=== PATIENT | male | born 1955 | race African-American/Black ===

== ENCOUNTER 2018-01-24 13:03 | Inpatient (IN) | payer OTHER ==
[2018-01-24 18:17] VITALS: BMI 21.1
--- NOTE | 2018-01-24 18:36 | HP ---
CIWA Score - CIWA Score Nausea/Vomitin Muscle Tremors: 3 Anxiety: 3 Agitation: 3 Paroxysmal Sweats: 2 Orientation: 0-Oriented Tacttile Disturbances: 2-Mild Itch/Numbness/Burn Auditory Disturbances: 2-Mild Harshness/Frighten Visual Disturbances: 0-None Headache: 2-Mild CIWA-Ar Total Score: 20 Admission ROS [facility] - HPI Chief Complaint: I NEED HELP TO STOP DRINKING ALCOHOL AND COCAINE Allergies/Adverse Reactions: Allergies Allergy/AdvReac Type Severity Reaction Status Date / Time No Known Allergies Allergy Verified 01/24/18 19:36 History of Present Illness: 62 YEARS OLD MALE WITH ALCOHOL AND COCAINE DEPENDENCE,SEEKING DETOX ,WITHDRAWAL SYMPTOM,LAST DETOX [facility] 01/28/16 TO 01/31.16 NICOTINE DEPENDENCE LONGEST PERIOD OF SOBRIETY 3 YEARS LEFT INGUINAL HERNIA - Ebola screening Have you traveled outside of the country in the last 21 days: No (N) Have you had contact with anyone from an Ebola affected area: No Have you been sick,other than usual withdrawal symptoms: No Do you have a fever: No - Review of Systems Constitutional: Loss of Appetite, Malaise, Night Sweats, Changes in sleep, Weakness, Unintentional Wgt. Loss EENT: reports: Tearing, Nose Congestion Respiratory: reports: No Symptoms reported Cardiac: reports: No Symptoms Reported GI: reports: Diarrhea, Nausea, Vomiting (LEFT INGUILA HERNIA 2 YEARS FOLLOW UP AT [facility]), Abdominal cramping : reports: No Symptoms Reported Musculoskeletal: reports: Back Pain, Joint Pain, Muscle Pain Integumentary: reports: Dryness Neuro: reports: Headache, Tremors Endocrine: reports: No Symptoms Reported Hematology: reports: No Symptoms Reported Psychiatric: reports: No Sypmtoms Reported, Judgement Intact, Mood/Affect Appropiate, Orientated x3 Patient History - Patient Medical History Hx Anemia: No Hx Asthma: No Hx Chronic Obstructive Pulmonary Disease (COPD): No Hx Cancer: No Hx Cardiac Disorders: No Hx Congestive Heart Failure: No Hx Hypertension: No Hx Hypercholesterolemia: No Hx Pacemaker: No HX Cerebrovascular Accident: No Hx Seizures: No Hx Dementia: No Hx Diabetes: No Hx Gastrointestinal Disorders: Yes (LEFT INGUINAL HERNIA) Hx Liver Disease: No Hx Genitourinary Disorders: No Hx Sexually Transmitted Disorders: No Hx Renal Disease (ESRD): No Hx Thyroid Disease: No Hx Human Immunodeficiency Virus (HIV): No (last 2016 negative,[facility]) Hx Hepatitis C: No Hx Depression: No Hx Suicide Attempt: No Hx Bipolar Disorder: No Hx Schizophrenia: No Other Medical History: NO SUICIDAL,NO HOMICIDAL - Patient Surgical History Past Surgical History: No - PPD History Previous Implant?: Yes Documented Results: Negative w/o proof Implanted On Prior [facility] Admission?: Yes Date: 01/30/16 PPD to be Administered?: Yes - Smoking Cessation Smoking history: Current every day smoker Have you smoked in the past 12 months: Yes Aproximately how many cigarettes per day: 10 Cigars Per Day: 0 Hx Chewing Tobacco Use: No Initiated information on smoking cessation: Yes 'Breaking Loose' booklet given: 01/24/18 - Substance & Tx. History Hx Alcohol Use: Yes Hx Substance Use: Yes Substance Use Type: Alcohol, Cocaine Hx Substance Use Treatment: Yes ([facility] 01/28/16 TO 02/01/16) - Substances Abused Alcohol Route: Oral Frequency: Daily Amount used: 1PINT OF VODKA/2 OF 22 OZS OF BEER Age of first use: 16 Date of Last Use: 01/24/18 Cocaine Route: Smoking Frequency: 3-6 times per week Amount used: 50$ Age of first use: 16 Date of Last Use: 01/22/18 Family Disease History - Family Disease History Family Disease History: Other: Father (ALCOHOL,), Mother (ALCOHOL, ) Admission Physical Exam S - Vital Signs Vital Signs: Vital Signs - 24 hr 01/24/18 18:10 Temperature 98.4 F Pulse Rate 94 H Respiratory 18 Rate Blood Pressure 162/116 - Physical General Appearance: Yes: Moderate Distress, Tremorous, Irritable, Sweating, Anxious HEENTM: Yes: Normal ENT Inspection, DAGOBERTO, Pharynx Normal Respiratory: Yes: Lungs Clear, Normal Breath Sounds, No Respiratory Distress Neck: Yes: Within Normal Limits, Supple, Trachea in good position Breast: Yes: Within Normal Limits Cardiology: Yes: Within Normal Limits, Regular Rhythm, Regular Rate, S1, S2 Abdominal: Yes: Within Normal Limits, Normal Bowel Sounds, Flat, Soft, Other ( LEFT INGUINAL HERNIA) Genitourinary: Yes: Within Normal Limits Back: Yes: Muscle Spasm Musculoskeletal: Yes: Back pain, Muscle Pain Extremities: Yes: Within Normal Limits, Normal Range of Motion, Tremors Neurological: Yes: rehab assistant II-XII NML intact, Alert, Motor Strength 5/5, Normal Mood /Affect Integumentary: Yes: Dry Lymphatic: Yes: Within Normal Limits - Diagnostic (1) Alcohol dependence with uncomplicated withdrawal Current Visit: No Status: Chronic (2) Cocaine dependence Current Visit: No Status: Chronic Qualifiers: Substance use status: uncomplicated Qualified Code(s): F14.20 - Cocaine dependence, uncomplicated (3) Nicotine dependence Current Visit: No Status: Chronic Qualifiers: Nicotine product type: cigarettes Substance use status: uncomplicated Qualified Code(s): F17.210 - Nicotine dependence, cigarettes, uncomplicated (4) Left inguinal hernia Current Visit: Yes Status: Acute (5) Poor oral hygiene Current Visit: Yes Status: Acute Cleared for Admission [facility] - Detox or Rehab [facility] Level of Care: Medically Managed Detox Regimen/Protocol: Librium [facility] Breath Alcohol Content Breath Alcohol Content: 0.088 Urine Drug Screen - Results Drug Screen Negative: No Urine Drug Screen Results: NOLAN-Cocaine
[2018-01-24] MEDS ORDERED: IBUPROFEN 400 MG TABLET (FP) PO PRN (20:51)
[2018-01-24] MEDS ORDERED: NICOTINE POLACRILEX 2 MG GUM BC PRN (20:51)
[2018-01-24] MEDS ORDERED: chlordiazePOXIDE HCL 25 MG CAPSULE PO PRN (20:51)
[2018-01-24] MEDS ORDERED: MAGNESIUM CITRATE 300 ML BOTTLE PO PRN (20:51)
[2018-01-24] MEDS ORDERED: P-EPHED 60MG/TRIPROLIDI 2.5MG TABLET PO PRN (20:51)
[2018-01-24] MEDS ORDERED: chlordiazePOXIDE HCL 25 MG CAPSULE PO ONE (20:51)
[2018-01-24] MEDS ORDERED: guaiFENesin/D-METHORPHAN HB 10 ML UNIT-DOSE CUPS PO PRN (20:51)
[2018-01-24] MEDS ORDERED: ACETAMINOPHEN 325 MG TABLET (FP) PO PRN (20:51)
[2018-01-24] MEDS ORDERED: LOPERAMIDE HCL 2 MG CAPSULE PO PRN (20:51)
[2018-01-24] MEDS ORDERED: MENTHOL/PHENOL 1 EACH UD MM PRN (20:51)
[2018-01-24] MEDS ORDERED: MAG HYDROX/AL HYDROX/SIMETH 30 ML UNIT-DOSE CUP PO PRN (20:51)
[2018-01-24] MEDS: THIAMINE HCL 100 MG TABLET (FP) PO SCH (21:14)
[2018-01-24] MEDS: chlordiazePOXIDE HCL 25 MG CAPSULE PO SCH (22:35)
[2018-01-25] MEDS: chlordiazePOXIDE HCL 25 MG CAPSULE PO SCH ×4 (05:38→22:30)
[2018-01-25] MEDS: MAGNESIUM HYDROX 2400MG/30ML ORAL SUSPENSION 30 ML CUP PO PRN (05:41)
[2018-01-25] MEDS: PRENATAL VITAMINS W/ FOLIC ACID TABLET (FP) PO SCH (10:12)
[2018-01-25] MEDS: NICOTINE 14 MG/24 HOURS TOPICAL PATCH TD SCH (10:13)
[2018-01-25 10:44] LABS: HEMATOCRIT 36.1 % (35.4-49); HEMOGLOBIN 12.1 GM/dL (11.7-16.9); MCH 30.9 pg (25.7-33.7); MCHC 33.6 g/dl (32.0-35.9); MEAN CELL VOLUME 91.9 fl (80-96); MEAN PLT VOLUME 7.5 fl (7.5-11.1); PLATELET COUNT 211 K/MM3 (134-434); RBC 3.93 M/mm3 (4.00-5.60); RDW 14.3 % (11.9-15.9); WHITE BLOOD COUNT 4.3 K/mm3 (4.0-10.0)
[2018-01-25 10:51] LABS: URINE APPEARANCE CLEAR; URINE BILIRUBIN NEGATIVE (NEGATIVE); URINE BLOOD NEGATIVE (NEGATIVE); URINE COLOR LTYELLOW; URINE GLUCOSE (UA) NEGATIVE (NEGATIVE); URINE KETONE NEGATIVE (NEGATIVE); URINE LEUK ESTERASE NEGATIVE (NEGATIVE); URINE NITRITE NEGATIVE (NEGATIVE); URINE PROTEIN NEGATIVE (NEGATIVE); URINE UROBILINOGEN NEGATIVE mg/dL (0.2-1.0)
[2018-01-25 10:58] LABS: CALCIUM 8.5 mg/dL (8.5-10.1); CHLORIDE 103 mmol/L (98-107); SODIUM 142 mmol/L (136-145)
[2018-01-25 11:05] LABS: ALBUMIN 3.2 g/dl (3.4-5.0); ALK PHOS 103 U/L (45-117); ANION GAP 12 (8-16); BILIRUBIN,TOTAL 1.2 mg/dL (0.2-1.0); BLOOD UREA NITROGEN 19 mg/dL (7-18); CO2 27 mmol/L (21-32); CREATININE 1.1 mg/dL (0.7-1.3); GLUCOSE,RANDOM 90 mg/dL (74-106); SGOT/AST 40 U/L (15-37); SGPT/ALT 35 U/L (12-78); TOT PROT 6.6 g/dl (6.4-8.2)
--- NOTE | 2018-01-25 15:11 | PN ---
S CIWA - CIWA Score Nausea/Vomitin-No Nausea/No Vomiting Muscle Tremors: 4-Moderate,w/Arms Extend Anxiety: 4-Mod. Anxious/Guarded Agitation: 4-Moderately Restless Paroxysmal Sweats: 4-Forehead w/Sweat Beads Orientation: 0-Oriented Tacttile Disturbances: 1-Very Mild Itch/Numbness Auditory Disturbances: 0-None Visual Disturbances: 0-None Headache: 0-None Present CIWA-Ar Total Score: 17 BHS Progress Note (SOAP) Subjective: Sweating, anxious, tremor Objective: 01/25/18 15:10 Last Vital Signs Temp Pulse Resp BP Pulse Ox 97.7 F 98 H 20 128/82 01/25/18 14:38 01/25/18 14:38 01/25/18 14:38 01/25/18 14:38 Laboratory Tests 01/25/18 01/25/18 01/25/18 08:00 08:00 08:00 WBC 4.3 RBC 3.93 L Hgb 12.1 Hct 36.1 MCV 91.9 MCH 30.9 MCHC 33.6 RDW 14.3 Plt Count 211 MPV 7.5 Sodium 142 Potassium 4.0 Chloride 103 Carbon Dioxide 27 Anion Gap 12 BUN 19 H Creatinine 1.1 Creat Clearance w eGFR > 60 Random Glucose 90 Calcium 8.5 Total Bilirubin 1.2 H D AST 40 H D ALT 35 D Alkaline Phosphatase 103 Total Protein 6.6 Albumin 3.2 L Urine Color Urine Appearance Urine pH Ur Specific [place] Urine Protein Urine Glucose (UA) Urine Ketones Urine Blood Urine Nitrite Urine Bilirubin Urine Urobilinogen Ur Leukocyte Esterase RPR Titer HIV 1&2 Antibody Screen Negative HIV P24 Antigen Negative 01/25/18 01/25/18 08:00 08:00 WBC RBC Hgb Hct MCV MCH MCHC RDW Plt Count MPV Sodium Potassium Chloride Carbon Dioxide Anion Gap BUN Creatinine Creat Clearance w eGFR Random Glucose Calcium Total Bilirubin AST ALT Alkaline Phosphatase Total Protein Albumin Urine Color Ltyellow Urine Appearance Clear Urine pH 5.0 Ur Specific [place] 1.015 Urine Protein Negative Urine Glucose (UA) Negative Urine Ketones Negative Urine Blood Negative Urine Nitrite Negative Urine Bilirubin Negative Urine Urobilinogen Negative Ur Leukocyte Esterase Negative RPR Titer Nonreactive HIV 1&2 Antibody Screen HIV P24 Antigen Labs noted Assessment: 01/25/18 15:10 Withdrawal symptoms Plan: Continue detox Encouraged PO hydration (water)
[2018-01-25] MEDS: THIAMINE HCL 100 MG TABLET (FP) PO SCH (22:30)
--- NOTE | 2018-01-26 00:10 | EKG ---
Test Reason : Blood Pressure : / mmHG Vent. Rate : 086 BPM Atrial Rate : 086 BPM P-R Int : 148 ms QRS Dur : 092 ms QT Int : 378 ms P-R-T Axes : 079 077 067 degrees QTc Int : 452 ms NORMAL SINUS RHYTHM NONSPECIFIC T WAVE ABNORMALITY ABNORMAL ECG NO PREVIOUS ECGS AVAILABLE Confirmed by GERMAINE THAYER MD ([id number]) on 01/26/2018 12:10:31 AM Referred By: Confirmed By:GERMAINE THAYER MD
[2018-01-26] MEDS: chlordiazePOXIDE HCL 25 MG CAPSULE PO SCH ×3 (05:35→18:05)
[2018-01-26] MEDS: PRENATAL VITAMINS W/ FOLIC ACID TABLET (FP) PO SCH (10:19)
[2018-01-26] MEDS: NICOTINE 14 MG/24 HOURS TOPICAL PATCH TD SCH (10:19)
--- NOTE | 2018-01-26 11:41 | PN ---
S CIWA - CIWA Score Nausea/Vomitin Muscle Tremors: 3 Anxiety: 3 Agitation: 3 Paroxysmal Sweats: 3 Orientation: 0-Oriented Tacttile Disturbances: 0-None Auditory Disturbances: 0-None Visual Disturbances: 0-None Headache: 0-None Present CIWA-Ar Total Score: 14 S Progress Note (SOAP) Subjective: Sweats sleep disturbance Objective: 01/26/18 11:39 A & O x 3 Vital Signs Temperature 95.3 F L 01/26/18 09:25 Pulse Rate 97 H 01/26/18 09:25 Respiratory Rate 18 01/26/18 09:25 Blood Pressure 139/91 01/26/18 09:25 O2 Sat by Pulse Oximetry (%) Laboratory Last Values WBC 4.3 K/mm3 (4.0-10.0) 01/25/18 08:00 RBC 3.93 M/mm3 (4.00-5.60) L 01/25/18 08:00 Hgb 12.1 GM/dL (11.7-16.9) 01/25/18 08:00 Hct 36.1 % (35.4-49) 01/25/18 08:00 MCV 91.9 fl (80-96) 01/25/18 08:00 MCH 30.9 pg (25.7-33.7) 01/25/18 08:00 MCHC 33.6 g/dl (32.0-35.9) 01/25/18 08:00 RDW 14.3 % (11.9-15.9) 01/25/18 08:00 Plt Count 211 K/MM3 (134-434) 01/25/18 08:00 MPV 7.5 fl (7.5-11.1) 01/25/18 08:00 Sodium 142 mmol/L (136-145) 01/25/18 08:00 Potassium 4.0 mmol/L (3.5-5.1) 01/25/18 08:00 Chloride 103 mmol/L (98-107) 01/25/18 08:00 Carbon Dioxide 27 mmol/L (21-32) 01/25/18 08:00 Anion Gap 12 (8-16) 01/25/18 08:00 BUN 19 mg/dL (7-18) H 01/25/18 08:00 Creatinine 1.1 mg/dL (0.7-1.3) 01/25/18 08:00 Creat Clearance w eGFR > 60 (>60) 01/25/18 08:00 Random Glucose 90 mg/dL (74-106) 01/25/18 08:00 Calcium 8.5 mg/dL (8.5-10.1) 01/25/18 08:00 Total Bilirubin 1.2 mg/dL (0.2-1.0) H D 01/25/18 08:00 AST 40 U/L (15-37) H D 01/25/18 08:00 ALT 35 U/L (12-78) D 01/25/18 08:00 Alkaline Phosphatase 103 U/L (45-117) 01/25/18 08:00 Total Protein 6.6 g/dl (6.4-8.2) 01/25/18 08:00 Albumin 3.2 g/dl (3.4-5.0) L 01/25/18 08:00 Urine Color Ltyellow 01/25/18 08:00 Urine Appearance Clear 01/25/18 08:00 Urine pH 5.0 (5.0-8.0) 01/25/18 08:00 Ur Specific [place] 1.015 (1.001-1.035) 01/25/18 08:00 Urine Protein Negative (NEGATIVE) 01/25/18 08:00 Urine Glucose (UA) Negative (NEGATIVE) 01/25/18 08:00 Urine Ketones Negative (NEGATIVE) 01/25/18 08:00 Urine Blood Negative (NEGATIVE) 01/25/18 08:00 Urine Nitrite Negative (NEGATIVE) 01/25/18 08:00 Urine Bilirubin Negative (NEGATIVE) 01/25/18 08:00 Urine Urobilinogen Negative mg/dL (0.2-1.0) 01/25/18 08:00 Ur Leukocyte Esterase Negative (NEGATIVE) 01/25/18 08:00 RPR Titer Nonreactive (NONREACTIVE) 01/25/18 08:00 HIV 1&2 Antibody Screen Negative 01/25/18 08:00 HIV P24 Antigen Negative 01/25/18 08:00 labs noted Assessment: 01/26/18 11:41 withdrawal sx Plan: continue detox
[2018-01-26] MEDS: THIAMINE HCL 100 MG TABLET (FP) PO SCH (22:17)
[2018-01-26] MEDS: chlordiazePOXIDE 5 MG CAPSULE PO SCH (22:17)
[2018-01-26] MEDS: MAGNESIUM HYDROX 2400MG/30ML ORAL SUSPENSION 30 ML CUP PO PRN (22:17)
[2018-01-27] MEDS: chlordiazePOXIDE 5 MG CAPSULE PO SCH (05:46)
[2018-01-27 09:28] VITALS: BP 137/97; PULSE 94; TEMP 95.7
[2018-01-27] MEDS: NICOTINE 14 MG/24 HOURS TOPICAL PATCH TD SCH (09:28)
[2018-01-27] MEDS: PRENATAL VITAMINS W/ FOLIC ACID TABLET (FP) PO SCH (09:28)
--- NOTE | 2018-01-27 13:47 | PN ---
BHS Progress Note (SOAP) Subjective: Patient denies current detox symptoms and reports that he feels well overall. Objective: PATIENT A & O X 3, OBSERVED AMBULATING ON UNIT. NO ACUTE DISTRESS. 01/27/18 13:45 Vital Signs Temperature 95.7 F L 01/27/18 09:27 Pulse Rate 94 H 01/27/18 09:27 Respiratory Rate 18 01/27/18 09:27 Blood Pressure 137/97 01/27/18 09:27 O2 Sat by Pulse Oximetry (%) Laboratory Tests 01/25/18 01/25/18 01/25/18 08:00 08:00 08:00 WBC 4.3 RBC 3.93 L Hgb 12.1 Hct 36.1 MCV 91.9 MCH 30.9 MCHC 33.6 RDW 14.3 Plt Count 211 MPV 7.5 Sodium 142 Potassium 4.0 Chloride 103 Carbon Dioxide 27 Anion Gap 12 BUN 19 H Creatinine 1.1 Creat Clearance w eGFR > 60 Random Glucose 90 Calcium 8.5 Total Bilirubin 1.2 H D AST 40 H D ALT 35 D Alkaline Phosphatase 103 Total Protein 6.6 Albumin 3.2 L Urine Color Urine Appearance Urine pH Ur Specific [place] Urine Protein Urine Glucose (UA) Urine Ketones Urine Blood Urine Nitrite Urine Bilirubin Urine Urobilinogen Ur Leukocyte Esterase RPR Titer Hep C Ab Diagnostic HIV 1&2 Antibody Screen Negative HIV P24 Antigen Negative 01/25/18 01/25/18 01/25/18 08:00 08:00 08:00 WBC RBC Hgb Hct MCV MCH MCHC RDW Plt Count MPV Sodium Potassium Chloride Carbon Dioxide Anion Gap BUN Creatinine Creat Clearance w eGFR Random Glucose Calcium Total Bilirubin AST ALT Alkaline Phosphatase Total Protein Albumin Urine Color Ltyellow Urine Appearance Clear Urine pH 5.0 Ur Specific [place] 1.015 Urine Protein Negative Urine Glucose (UA) Negative Urine Ketones Negative Urine Blood Negative Urine Nitrite Negative Urine Bilirubin Negative Urine Urobilinogen Negative Ur Leukocyte Esterase Negative RPR Titer Nonreactive Hep C Ab Diagnostic 0.9 HIV 1&2 Antibody Screen HIV P24 Antigen LABS NOTED. Assessment: 01/27/18 13:46 COMPLETION OF DETOX REGIMEN. 01/27/18 13:47 Plan: PATIENT SCHEDULED FOR DISCHARGE TODAY.
--- NOTE | 2018-01-27 13:51 | DS ---
[facility] Detox Discharge Summary Admission Date: 01/24/18 Discharge Date: 01/27/18 - History Present History: Alcohol Dependence, Cocaine Dependence Additional Comments: PATIENT WILL RETURN TO [facility] ([place], [place] FOR AFTERCARE. PATIENT WAS DISCHARGED FROM UNIT IN STABLE MEDICAL CONDITION. Pertinent Past History: History of Inguinal Hernia, Nicotine Dependence. - Physical Exam Results Vital Signs: Vital Signs Temperature 95.7 F L 01/27/18 09:27 Pulse Rate 94 H 01/27/18 09:27 Respiratory Rate 18 01/27/18 09:27 Blood Pressure 137/97 01/27/18 09:27 O2 Sat by Pulse Oximetry (%) Pertinent Admission Physical Exam Findings: WITHDRAWAL SYMPTOMS. Laboratory Tests 01/25/18 01/25/18 01/25/18 08:00 08:00 08:00 WBC 4.3 RBC 3.93 L Hgb 12.1 Hct 36.1 MCV 91.9 MCH 30.9 MCHC 33.6 RDW 14.3 Plt Count 211 MPV 7.5 Sodium 142 Potassium 4.0 Chloride 103 Carbon Dioxide 27 Anion Gap 12 BUN 19 H Creatinine 1.1 Creat Clearance w eGFR > 60 Random Glucose 90 Calcium 8.5 Total Bilirubin 1.2 H D AST 40 H D ALT 35 D Alkaline Phosphatase 103 Total Protein 6.6 Albumin 3.2 L Urine Color Urine Appearance Urine pH Ur Specific [place] Urine Protein Urine Glucose (UA) Urine Ketones Urine Blood Urine Nitrite Urine Bilirubin Urine Urobilinogen Ur Leukocyte Esterase RPR Titer Hep C Ab Diagnostic HIV 1&2 Antibody Screen Negative HIV P24 Antigen Negative 01/25/18 01/25/18 01/25/18 08:00 08:00 08:00 WBC RBC Hgb Hct MCV MCH MCHC RDW Plt Count MPV Sodium Potassium Chloride Carbon Dioxide Anion Gap BUN Creatinine Creat Clearance w eGFR Random Glucose Calcium Total Bilirubin AST ALT Alkaline Phosphatase Total Protein Albumin Urine Color Ltyellow Urine Appearance Clear Urine pH 5.0 Ur Specific [place] 1.015 Urine Protein Negative Urine Glucose (UA) Negative Urine Ketones Negative Urine Blood Negative Urine Nitrite Negative Urine Bilirubin Negative Urine Urobilinogen Negative Ur Leukocyte Esterase Negative RPR Titer Nonreactive Hep C Ab Diagnostic 0.9 HIV 1&2 Antibody Screen HIV P24 Antigen LABS NOTED. - Treatment Hospital Course: Detox Protocol Followed, Detoxed Safely, Responded well, Discharged Condition Good Patient has Accepted a Rehab Referral to: PT RETURNING TO [facility] ([place], [place] - Medication Discharge Medications: Ambulatory Orders NK [No Known Home Medication] 01/28/16 - Diagnosis (1) Alcohol dependence with uncomplicated withdrawal Status: Acute (2) Poor oral hygiene Status: Acute (3) Cocaine dependence Status: Chronic Qualifiers: Substance use status: uncomplicated Qualified Code(s): F14.20 - Cocaine dependence, uncomplicated (4) Left inguinal hernia Status: Chronic (5) Nicotine dependence Status: Chronic Qualifiers: Nicotine product type: cigarettes Substance use status: uncomplicated Qualified Code(s): F17.210 - Nicotine dependence, cigarettes, uncomplicated - AMA Did Patient Leave Against Medical Advice: No
[2018-01-27] MEDS ORDERED: chlordiazePOXIDE HCL 10 MG CAPSULE PO SCH (23:00)
== END 2018-01-27 09:36 | disposition home or self-care (01) | DRG 774 ==
LOC: YASAS 13:03 → Y3N 18:29
PROVIDERS: ADMIT Internal Medicine; ATTEND Internal Medicine
PROC: HZ2ZZZZ Detoxification Services for Substance Abuse Treatment (ICD-10-PCS; principal; 2018-01-24)
DX: F10.230 Alcohol dependence with withdrawal, uncomplicated (principal); F14.20 Cocaine dependence, uncomplicated; F17.210 Nicotine dependence, cigarettes, uncomplicated; K40.90 Unilateral inguinal hernia, without obstruction or gangrene, not specified as recurrent; R46.0 Very low level of personal hygiene
CPT/HCPCS: 36415; 80053; 81003; 85027; 86593; 87389; 93005; 93010

== ENCOUNTER 2022-08-09 14:20 | Inpatient (IN) | payer OTHER, BC ==
[2022-08-09 19:56] VITALS: RESP 18; BMI 19.8
[2022-08-09] MEDS ORDERED: ONDANSETRON *ODT* 4 MG TABLET SL PRN (21:04)
[2022-08-09] MEDS ORDERED: LOPERAMIDE HCL 2 MG CAPSULE PO PRN (21:04)
[2022-08-09] MEDS ORDERED: MAG HYDROX/AL HYDROX/SIMETH 30 ML UNIT-DOSE CUP PO PRN (21:04)
[2022-08-09] MEDS ORDERED: IBUPROFEN 600 MG TABLET (FP) PO PRN (21:04)
[2022-08-09] MEDS ORDERED: MAGNESIUM HYDROX 2400MG/30ML ORAL SUSPENSION 30 ML CUP PO PRN (21:04)
[2022-08-09] MEDS ORDERED: IBUPROFEN 400 MG TABLET (FP) PO PRN (21:04)
[2022-08-09] MEDS ORDERED: MAGNESIUM CITRATE 300 ML BOTTLE PO PRN (21:04)
[2022-08-09] MEDS ORDERED: P-EPHED 60MG/TRIPROLIDI 2.5MG TABLET PO PRN (21:04)
[2022-08-09] MEDS ORDERED: guaiFENesin 200 MG/10 ML 10 ML UNIT-DOSE CUPS PO PRN (21:04)
[2022-08-09] MEDS ORDERED: METHOCARBAMOL 500 MG TABLET PO PRN (21:04)
[2022-08-09] MEDS ORDERED: NALOXONE HCL (KLOXXADO) 8 MG SPRAY NS PRN (21:04)
[2022-08-09] MEDS ORDERED: amLODIPine BESYLATE 10 MG TABLET (FP) PO ONE (21:04)
[2022-08-09] MEDS ORDERED: NICOTINE POLACRILEX 2 MG GUM BUC PRN (21:04)
[2022-08-09] MEDS ORDERED: BISMUTH SUBSALICYLATE 524 MG/30 ML PO PRN (21:04)
[2022-08-09] MEDS ORDERED: ACETAMINOPHEN 325 MG TABLET (FP) PO PRN ×2 (21:04)
[2022-08-09] MEDS ORDERED: DICYCLOMINE HCL 10 MG CAPSULE PO PRN (21:04)
[2022-08-09] MEDS ORDERED: BENZOCAINE/MENTHOL (CHLORASEPTIC ) LOZENGE MM PRN (21:04)
[2022-08-09] MEDS ORDERED: amLODIPine BESYLATE 5 MG TABLET (FP) ONE (21:33)
[2022-08-09] MEDS ORDERED: THIAMINE HCL 100 MG TABLET (FP) PO SCH (22:00)
[2022-08-09] MEDS ORDERED: MELATONIN 5 MG TABLETS PO SCH (22:00)
[2022-08-09] MEDS: hydrOXYzine PAMOATE 25 MG CAPSULE (FP) PO PRN (23:36)
[2022-08-10] MEDS ORDERED: PRENATAL VITAMINS W/ FOLIC ACID TABLET (FP) PO SCH (10:00)
[2022-08-10] MEDS ORDERED: NICOTINE 14 MG/24 HOURS TOPICAL PATCH TD SCH (10:00)
[2022-08-10 11:02] LABS: HEMATOCRIT 36.5 % (35.4-49); HEMOGLOBIN 12.4 GM/dL (11.7-16.9); MCH 32.1 pg (25.7-33.7); MCHC 33.9 g/dl (32.0-35.9); MEAN CELL VOLUME 94.7 fl (80-96); MEAN PLT VOLUME 7.6 fl (7.5-11.1); PLATELET COUNT 240 10^3/uL (134-434); RBC 3.86 M/mm3 (4.00-5.60); RDW 13.5 % (11.9-15.9); WHITE BLOOD COUNT 3.6 K/mm3 (4.0-10.0)
[2022-08-10] MEDS: hydrOXYzine PAMOATE 25 MG CAPSULE (FP) PO PRN (11:02)
[2022-08-10 11:30] LABS: CALCIUM 9.4 mg/dL (8.5-10.1)
[2022-08-10 11:31] LABS: ALBUMIN 3.6 g/dl (3.4-5.0); BLOOD UREA NITROGEN 12.8 mg/dL (7-18)
[2022-08-10 11:35] LABS: CREATININE 1.1 mg/dL (0.55-1.3)
[2022-08-10 11:37] LABS: TOT PROT 6.7 g/dl (6.4-8.2)
[2022-08-10 13:01] VITALS: BP 113/70; PULSE 81; TEMP 96.9
== END 2022-08-10 13:15 | disposition home or self-care (01) | DRG 897 ==
LOC: YASAS 14:20 → Y6N 22:55
PROVIDERS: ADMIT Allergy & Immunology; ATTEND Surgery
PROC: HZ2ZZZZ Detoxification Services for Substance Abuse Treatment (ICD-10-PCS; principal; 2022-08-09)
DX: F10.230 Alcohol dependence with withdrawal, uncomplicated (principal); F14.20 Cocaine dependence, uncomplicated; F17.210 Nicotine dependence, cigarettes, uncomplicated; I10 Essential (primary) hypertension; Z91.14 Patient's other noncompliance with medication regimen
CPT/HCPCS: 36415; 80053; 85027; 86780; 93005; 93010; C9803-CS; U0003; U0005